=== PATIENT | female | born 1965 | race Caucasian/White ===

== ENCOUNTER 2017-08-12 11:37 | Emergency (ER) | payer OTHER ==
[2017-08-12 13:28] VITALS: BP 121/76
--- NOTE | 2017-08-15 10:24 | ER ---
DATE SEEN: 08/12/2017 TIME SEEN: The patient was seen at 1147 hours. 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 She had reached for a glass and did not spill the glass, but had difficulty finding her silverware. She was noted to have grabbed several pills and put a handful of pills in her purse this morning. They are going to a wedding at 1600 hours and as she went out the door, she took all the pills. On one occasion before, she was known to accidentally take her sleeping pills. She takes Ambien at nighttime and it is postulated by the family that she may have taken sleeping pill accidentally and this resulted in somnolence now. No history of trauma, fevers, sore throats, upper and lower respiratory symptoms, chest pain, shortness of breath, cough, abdominal pain, GI bleeding, or heavy menstrual periods. She is perimenopausal. MEDICATIONS: Calcium carbonate, multiple vitamins, iron, zolpidem for sleep, cranberry, and citalopram. PAST MEDICAL HISTORY: History of depression. No history of hypothyroidism, TIA, CVA, head trauma, or seizures. REVIEW OF SYSTEMS: Negative except as noted above. HEENT: No sinusitis. No sore throat. No cough. No neck problem. No tumors. No head injuries. CARDIORESPIRATORY: Negative for chest pain, shortness of breath, cough, irregular heartbeat or palpitations, or syncope or near syncope. ABDOMEN: No gastrointestinal complaints. No nausea, vomiting, diarrhea, constipation, blood in her stool, or change in bowels. : Perimenopausal. MUSCULOSKELETAL: Negative for arthritis or connective tissue disease. NEUROLOGIC: Negative. PHYSICAL EXAMINATION: VITAL SIGNS: Blood pressure 127/79, heart rate 78, respirations 18, oxygen saturation 98%. HEENT: Somewhat sleepy, quiet, soft- spoken, and good facial inflection and changes, but tired looking. TMs normal in appearance. Pharynx without abnormality. PERRLA intact. Pupils mildly reactive. Not pinpoint, not dilated. Conjugate gaze, normal. No diplopia. NECK: No bruits. No thyromegaly. No masses. No cervical adenopathy. Neck is supple. LUNGS: Clear to auscultation without rales, rhonchi, or wheezes. HEART: S1, S2. No tachycardia. No S3, no S4. No PMI. ABDOMEN: Soft. No guarding. No abdominal discomfort. EXTREMITIES: Lower extremities without edema. Deep tendon reflexes normal, upper and lower extremities. No pronator drift. No past pointing. No dysmetria. No tremor. No paresis or weakness, upper and lower extremities. Muscle strength 4+/4+. Gait appropriate. Slightly ataxic. Romberg negative. ASSESSMENT: Somnolence secondary to accidental ingestion of her sleeping pills. PLAN: 1. She has to be with a responsible adult for the next 24 hours to make sure she does not fall down and family has been advised how to carefully hold onto her elbow as she walks or should they be standing next to her and she gets lightheaded and dizzy. 2. Rest before the wedding. 3. Follow up with doctor as needed in next 24 hours if she is not improved, and if somnolence persists and at that point, then perhaps a CAT scan may be needed. DIFFERENTIAL DIAGNOSIS: Cerebrovascular accident, seizure, drug abuse, closet alcoholism, smoking and/or using illicit drugs. All the latter are low probability as family can attest to that. Follow up with doctor in a week as needed, otherwise in 2 weeks as needed or earlier if worse. No medications prescribed. Time spent with patient was 28 minutes. /[id number] JACQUIE/[email or web address]
== END 2017-08-12 13:25 | disposition home or self-care (01) ==
LOC: FB.ED 11:37
DX: R40.0 Somnolence (principal); T42.75XA Adverse effect of unspecified antiepileptic and sedative-hypnotic drugs, initial encounter; F32.9 Major depressive disorder, single episode, unspecified
CPT/HCPCS: 99284